=== PATIENT | female | born 1945 | race Caucasian/White ===

== ENCOUNTER 2020-06-11 21:08 | Emergency (ER) | payer MEDICARE ==
[~2020-06-11] VITALS: Ht 165.1 cm; Wt 99.8 kg
[2020-06-11] MEDS ORDERED: METFORMIN HYDRO25 GM (21:51)
[2020-06-11] MEDS ORDERED: HYDROCHLOROTH12.5 M1 (21:52)
[2020-06-11] MEDS ORDERED: PRAVACHOL20 MG (21:52)
== END 2020-06-11 23:39 | disposition home or self-care (01) ==
LOC: ED 21:08
DX: N63.10 Unspecified lump in the right breast, unspecified quadrant (principal); I10 Essential (primary) hypertension; E11.9 Type 2 diabetes mellitus without complications; Z79.84 Long term (current) use of oral hypoglycemic drugs; Z79.899 Other long term (current) drug therapy
CPT/HCPCS: 99282

== ENCOUNTER 2020-09-14 07:00 | Day surgery (SDC) | payer MEDICARE ==
[~2020-09-14] VITALS: Ht 165.1 cm; Wt 83.2 kg
[~2020-09-14 07:00] MED LIST: ASPIRIN EC325 MG PO; CARDIZEM CD300 MG PO; COZAAR25 MG PO; GLUCOPHAGE XR500 MG PO; GLYBURIDE5 MG PO; HYDROCHLOROTHIA25 MG PO; PRAVASTATIN SOD40 MG PO; ZINC30 MG PO
--- NOTE | 2020-09-14 13:20 | NUR ---
09/14/20 1320 Marissa Silverman 1313: PT ARRIVES TO PACU VIA BED FOR RECOVERY. NON REACTIVE ON ARRIVAL WITH OPA IN PLACE. VSS, RESP EVEN AND UNLABORED. O2 SAT STABLE >98% ON 10L VIA FACEMASK. SMALL DROP OF SHADOWING ON CHEST DRESSING. SAMEER DRAINS X2 IN PLACE AND SCDS IN PLACE
--- NOTE | 2020-09-14 15:00 | NUR ---
PT. ARRIVED FROM PACU VIA STRETCHER WITH RNS AND REPORT GIVEN. PT. IS DROWSY BUT EASILY AWAKENS TO VOICE AND ORIENTED. ACTICOAT DRESSING IS CDI AND SAMEER DRAINS CONNECTED TO WALL SUCTION SET TO HIGH AND DRAINING SERISANGUINOUS FLOOD. ABDOMEN DISTENDED BUT SOFT. LUNGS CLEAR THROUGHOUT. CPOX AND SCDS IN PLACE. TRACE EDEMA BLE. IV FLUSHES WELL AND WNL. IVF STARTED. DISCUSSED SAFETY AND MEDICATIONS. PT. LEFT RESTING WITH CALL LIGHT IN REACH.
--- NOTE | 2020-09-14 16:35 | NUR ---
PT. IS ALERT AND ORIENTED. SHE REPORTS PAIN IS TOLERABLE AND REFUSES NEED FOR PAIN MEDICATION. ACTICOAT DRESSING ON RT CHEST IS CDI. SHADOWING PRESENT ON UPPER SAMEER DRESSING. SAMEER DRAINS ATTACHED TO WALL SUCTION ON HIGH. SERISANGUINOUS DRAINAGE. SHE DENIES NAUSEA. DISCUSSED MANAGING PAIN. LEFT RESTING IN BED WITH CALL LIGHT IN REACH.
--- NOTE | 2020-09-14 17:38 | NUR ---
PATIENT REPORTS INCREASING PAIN THAT IS MODERATE IN RIGHT CHEST. ADMIN. PERCOCET. ALERT AND ORIENTED. ACTICOAT DRESSING HAS A SMALL AMOUNT OF SHADOWING. SAMEER DRAINS ATTACHED TO WALL SUCTION AND DRAINING SERISANGUINOUS FLUID. LUNGS CLEAR THROUGHOUT. BOWEL TONES ACTIVE. PT. DENIES NAUSEA AND IS TOLERATING PO FLUIDS. VITALS STABLE.
--- NOTE | 2020-09-14 18:47 | NUR ---
PT. STATES PAIN IS BETTER AND DENIES NAUSEA. VITALS STABLE. TITRATED TO 1L NC AND O2 SATS. REMAIN GREATER THAN 92%. ACTICOAT ON RIGHT CHEST HAS A SMALL AMOUNT OF SHADOWING THAT IS UNCHANGED FROM EARLIER. SAMEER DRAINS PATENT AND ATTACHED TO WALL SUCTION ON HIGH. DRAINAGE NOT REACHING CANISTER EVEN AFTER MANIPULATION.
--- NOTE | 2020-09-14 19:10 | NUR ---
SHIFT REPORT FROM NURSE PACE. PT IS SITTING UP IN BED EATING DINNER. PT STATES THAT SHE HAS FALLEN ASLEEP DURING EATING A COUPLE TIMES. CALL LIGHT WITHIN REACH. PT DENIES NEEDS AT THIS TIME.
--- NOTE | 2020-09-14 20:11 | NUR ---
IN ROOM TO COSIGN INSULIN. PT HAS A VISITOR AT THIS TIME AND AVOIDS NEEDS. CALL LIGHT IS CLOSE.
--- NOTE | 2020-09-14 20:15 | NUR ---
IN ROOM FOR SCHEDULED ONE TIME INSUILIN DOSE. PT HAS A VISITOR AND IS ALERT AND VISTING WITH VISITOR. NO FURTHER NEEDS AT THIS TIME.
--- NOTE | 2020-09-14 21:10 | NUR ---
IN ROOM FOR EVENING MEDS AND ASSESSMENT. PT IS DROWSY AT FIRST BUT IS QUITE ALERT AND TALKATIVE DURING ASSESSMENT AND MEDS. PT REPORTS NO PAIN BUT WHEN ASKED TO TURN A BIT TO THE SIDE TO AUSCULATE LUNGS, PT REPORTS SOME TENDERNESS. SAMEER DRAIN TUBING STRIPPED AND SOME DRAINAGE MOVEMENT IN TUBING ALTHOUGH NOT REACHING WALL UNIT AT THIS TIME. DRAINAGE IS SANGUINOUS IN APPEARANCE, MINIMAL AMOUNT. MAIN BANDAGE IS CDI WITH ONLY SCANT SHADOWING. UPPER SAMEER DRAIN BANDAGE HAS SOME DRAINAGE ON ACTICOAT BUT IS WITHIN OPSITE COVERING. PT REMAINS ON 1L NC SPO2 IS 92-93%. VSS. BOWEL TONES ACTIVE, LUNG SOUNDS CLEAR. CMS INTACT. ZAMUDIO CARE PERFORMED. WATER REFRESHED. PT REPOSITIONED. CALL LIGHT WITHIN REACH.
--- NOTE | 2020-09-14 23:30 | NUR ---
CHECKED ON PT. PT APPEARS TO BE SLEEPING; EYES CLOSED, EVEN UNLABORED BREATHING NOTED. 93% ON 1L NC. NO APPARENT SIGNS OF DISTRESS. CALL LIGHT AND BEDSIDE TABLE WITHIN REC.
--- NOTE | 2020-09-15 02:40 | NUR ---
IN PT ROOM FOR EXTENDED TIME. VITALS COMPLETED. PT REQUESTS TO GET UP TO STRETCH AND GET PRESSURE OFF "REAR END". SBA FWW TO STAND. WHEN PT STOOD, A LARGE AMOUNT OF URINE IS ON THE BED AND PT REPORTS "PEE RUNNING DOWN MY LEGS" DESPITE ZAMUDIO. CONTINUOUS DRIPPING FROM ZAMUDIO. WHEN ASSESSING ORDERS FOR ZAMUDIO, NO ORDER SEEN. THIS RN MADE DECISION TO D/C ZAMUDIO AT THIS TIME. PT THEN HAD MORE URINE IN BSC. FLOOR, PT SOCKS, GOWN CLEANED OF URINE. PT THEN REPORTS PAIN IN SURGICAL AREA. PRN PERCOCET PO ADMINISTERED AT THIS TIME. DRAINAGE FROM JPS APPEARS TO BE TURNING MORE SEROSANGUINOUS FROM SANGUINOUS. PT RETURNED TO BED. CALL LIGHT WITHIN REACH.
--- NOTE | 2020-09-15 05:41 | NUR ---
CALL LIGHT ANSWERED. PT UP TO BSC. VITALS AND ASSESSMENT COMPLETED AT THIS TIME. SCHEDULED MEDS GIVEN. SAMEER DRAIN UPPER 45ML, LOWER 30ML. ATTEMPTING TO TITRATE PT OFF OF O2. WILL CONTINUE TO MONITOR. CALL LIGHT WITHIN REACH.
--- NOTE | 2020-09-15 07:15 | NUR ---
SHIFT REPORT FROM MACARIO METZGER INCLUDED: pt was given PRN pain meds last night and early this morning. pt sometimes forgetful, but alert and oriented x4. pt has both constance drains connected to wall suction on high, due to drains not suctioning from the bulbs. pt currently resting in bed, eyes closed, breathing even and unlabored, table and call light in reach.
--- NOTE | 2020-09-15 08:00 | NUR ---
CBG + MED PASS + ASSESSMENT pt up to commode at this time, with SBA and help with her tubes and lines. pt back to bed, positioned to comfort. pt assessment complete, VSS. pt reports 2/10 pain at this time, denies nausea and SOB. pt currently maintaining o2sats >91% on RA. pt CBG was 297, 4 units insulin given per sliding scale orders. pt able to take all morning meds without difficulty. pts surgical site appears intact and has small amount of shadowing present along dressing. pts constance drain site on her right side has moderate amount of shadowing present, while other constance drain dressing appears CDI. All dressings intact at this time. pt drains connected to high suction from the wall. scant amount of serosanguenous drainage collecting at this time. pt denies further needs at this time, pt sitting up fowlers position, having breakfast, table and call light in reach.
--- NOTE | 2020-09-15 09:55 | NUR ---
PATIENT UP TO BSC AND BACK TO BED, 1PA FWW. PATIENT REFUSED GOING TO CHAIR. URINE IS RED COLORED AND ATTENDS HAD SOME BLOOD STREAKS ON IT, RN NOTIFIED. NEW ATTENDS IN PLACE. CALL LIGHT IN REACH. NO FURTHER NEEDS AT THIS TIME.
--- NOTE | 2020-09-15 09:55 | NUR ---
BENITO INFORMS ME THAT PATIENT HAS BLOODY URINE IN COMMODE AT THIS TIME urine assessed and there was about 200mls of light pink urine in the hat at this time. new hat placed and sample will be collected on her next void. pt denies pain. pt currently in bed, table and call light in reach.
--- NOTE | 2020-09-15 11:02 | OR ---
[facility] [address], [place] [address] Signed DATE OF OPERATION: 09/14/2020 SURGEON: Milan Polanco MD PREOPERATIVE DIAGNOSIS: Ulcerating necrotic large central right breast mass with metastatic disease regionally and to possibly mediastinum. POSTOPERATIVE DIAGNOSIS: Ulcerating necrotic large central right breast mass with metastatic disease regionally and possibly mediastinum. PROCEDURES: 1. Right radical mastectomy (total mastectomy, level #3 axillary dissection, and excision of pectoralis muscle) prolonged complicated difficult. 2. Elevation of superior and inferior advancement flaps for wound closure. ANESTHESIA: General endotracheal; Milan Gardner CRNA. INDICATIONS: This 75-year-old white woman is a patient of Dr. Lg Patrick of [place], [place]. She presented to the emergency room in June with findings of a necrotic foul-smelling rock-hard mass in the central upper right breast and plans were made for evaluation. She has no phone and despite great efforts to call her and arrange for an outpatient visit, she was not seen until September 03. She does not maintain a phone, but ultimately did call in for a visit. She was found to have an ulcerated mass of the right breast with foul smell, consistent with necrosis and clinical lymphadenopathy of the axilla. The lesion appeared to be somewhat fixed to the chest wall. She did not have inflammatory changes of the breast otherwise. CT scan of the chest was performed on September 07, 2020, which was remarkable for a large necrotic right breast mass as well as mediastinal and axillary adenopathy. There was penetration of the tumor to the pectoralis muscle. There was no evidence of pulmonary metastasis. Some question of possible mediastinal adenopathy, axillary adenopathy, and possible sternal metastasis. Breast mass is approximately 66 mm x 38 mm x 74 mm and has some calcifications. It is noted that the patient has had a breast mass in the same breast for a number of years. She tells me 3 biopsies over several years of the mass were all considered "benign." These biopsies were most recently performed approximately 20 years ago and Electronically Signed By: MILAN POLANCO MD 09/15/20 1102 PATIENT NAME: RENA WALTER OPERATIVE REPORT DATE OF : 45 REPORT #: [id number] PHYSICIAN: MILAN POLANCO MD PCP: LG PATRICK MD REPORT IS CONFIDENTIAL AND NOT TO BE RELEASED WITHOUT AUTHORIZATION [facility] [address] [place] [id number] Signed certainly no sooner than 10 or 15 years. Her primary provider is Dr. Lg Patrick in [place]. I have no knowledge of his evaluation of her in the past. Given the necrotic nature of the mass since firm consistency and penetration into the pectoralis, I have recommended radical mastectomy. Excision of the tumor and regional lymph nodes as much as possible is the most likely way to provide reasonable local control. It is noted that the mass itself episodically has profound and profuse bleeding-- which was her presenting complaint at the emergency room months ago. I saw her in the office later this week for treatment planning anticipating possible core biopsy and possibly even a neoadjuvant chemotherapy intitial approach. However, she was found to have somewhat significant exoriation and bleeding which required local pressure for control. It is more reasonable at this point to simply provide definitive surgical local control, given the progression of her problem and consider adjuvant palliative therapy afterward. The patient understands well the risks of bleeding, infection, flap failure, given her underlying diabetes, need for other indicated procedures and little likelihood of total cure, but high likelihood of good local control of disease. She understands and she wished to proceed. FINDINGS: The mass was foul smelling and somewhat necrotic, not hemorrhaging today. It was dense and hard about the size of a baseball and contiguous with pectoralis muscle. Excision included the breast tissue, pectoralis major and dissection of lymph node stations-- Missy's nodes as well as the infraclavicular space and level #3 lymphadenectomy of the axilla. The right axillary vein and artery were well identified as was the thoracodorsal and long thoracic neurovascular bundles, which were preserved. Intercostal brachial nerves were sacrificed with the specimen in continuity. There remained some adenopathy in the infraclavicular space, the central portion on the right side for which additional dissection was deemed a bit too hazardous for fear of disruption of a subclavian vein or artery. Nevertheless, safe resection of the breast and clearance of regional adenopathy is now noted. DESCRIPTION OF PROCEDURE: The patient was brought to the operating room and given a general endotracheal anesthetic. Preoperative antibiotic Ancef was given. Sequential compression device stockings were used and heparin subcutaneously administered. Photographs were taken. The right arm Electronically Signed By: MILAN POLANCO MD 09/15/20 1102 PATIENT NAME: RENA WALTER OPERATIVE REPORT DATE OF : 45 REPORT #: [id number] PHYSICIAN: MILAN POLANCO MD PCP: LG PATRICK MD REPORT IS CONFIDENTIAL AND NOT TO BE RELEASED WITHOUT AUTHORIZATION [address] [address] Signed and upper chest were prepared with a Betadine based solution and draped sterilely. The lesion itself was cephalad to the nipple, was foul-smelling and necrotic. It measured approximately 6 cm of open raw tumor. The central portion of the breast was marked so as to incorporate the tumor and maintain some semblance of flaps to allow for closure. An incision was made with a #15 blade inferiorly initially and carried through the dermis with electrocautery. The breast parenchyma and so forth were dissected free from the flap inferiorly. The tumor clearly penetrated into the pectoralis muscle and pectoralis was excised from the chest wall. There was no penetration to the pectoralis minor. Obvious involved lymph nodes were noted in the Missy's nodes (lymph nodes) between the pectoralis major and minor and these were dissected free in continuity with the specimen. The upper incision line was then incised and similarly dissected up to and through pectoralis, which tumor was penetrating. Care was taken in the infraclavicular space to avoid further dissection into subclavian vein and artery. There were lymph nodes emanating from the axilla laterally to this area, however. These were dissected free with meticulous care as much as possible. Dissection laterally was undertaken ultimately allowing for axillary dissection. The axillary vein was identified and followed centrally toward the clavicle and there were clinically positive lymph nodes inferior to it. The pectoralis was essentially able to be excised with high extended level #3 lymph node stations easily visualized. Multiple very hard lymph nodes were noted in this area. Clips were used to secure small vascular structures. Intercostal brachial nerve bundles were clipped and divided as well. The dissection was completed, ultimately excising axillary lymph tissue in continuity with the breast mass, pectoralis muscle, and the aforementioned extranodal stations. The long thoracic and thoracodorsal neurovascular bundles were well identified and preserved. Irrigation was undertaken with sterile water for its tumorlytic effect. Two stab wounds were made inferiorly to place 10 mm drains. Tisseel (fibrin glue) was applied to the axilla and raw edge of the pectoralis muscle. Attention was then turned towards closure. The skin flaps were short enough that direct apposition was not initially possible at all except for the lateral and medial aspects. On that basis, flaps were elevated superiorly and inferiorly to allow for transposition to close the mastectomy defect. Underming of the superior flap was to the level of the clavicle and for the inferior flap to beyond the costal margin to the rectus sheath. The superior and inferior flaps were drawn together with traumatic towel clamps and secured sequentiall with interrupted 2-0 Vicryl. The central part had an area about the size of 4 to 6 cm, which was under a fair amount of tension. The right arm was then placed at the side to take additional tension off. Using the benefit of the towel clamps, the flap edges were able to be directed Electronically Signed By: MILAN POLANCO MD 09/15/20 1102 PATIENT NAME: RENA WALTER OPERATIVE REPORT DATE OF : 45 REPORT #: [id number] PHYSICIAN: MILAN POLANCO MD PCP: LG PATRICK MD REPORT IS CONFIDENTIAL AND NOT TO BE RELEASED WITHOUT AUTHORIZATION [address] [address] Signed together and the remaining space closed. The skin was then fully oversewn with a running 2-0 nylon suture. Irrigation was undertaken prior to closure. There was no ongoing bleeding. The drains were attached to bulb suction. She did not initially hold air too well and additional opSites were applied to the drain sites as well as the mastectomy site itself. This allowed for better occlusion and suctioning on the drains. It is likely she will need some additional suction from wall suction device in the 1st 12 to 24 hours. The patient was ultimately extubated and transferred to recovery room in good condition having suffered no complication. Sponge and needle counts were reported as correct x3. Blood loss was estimated at less than 100 mL in aggregate. The procedure was prolonged, complicated, and difficult based on the aforementioned factors, particularly in mobilizing the skin to allow for closure and extended and advanced lymphadenectomy. Milan Polanco MD /MODL /[id number] cc: Dr. [facility] MD Lg Torres MD Copies: LO NEGRON MD, KEVIN R MD ~ Electronically Signed By: MILAN POLANCO MD 09/15/20 1102 PATIENT NAME: RENA WALTER OPERATIVE REPORT DATE OF : 45 REPORT #: [id number] PHYSICIAN: MILAN POLANCO MD PCP: LG PATRICK MD REPORT IS CONFIDENTIAL AND NOT TO BE RELEASED WITHOUT AUTHORIZATION
--- NOTE | 2020-09-15 14:23 | NUR ---
PATIENT UP TO BATHROOM AND BACK TO CHAIR, 1PA. VITALS AND I&O'S CHARTED. FRESH WATER GIVEN. CALL LIGHT IN REACH. NO FURTHER NEEDS AT THIS TIME.
--- NOTE | 2020-09-15 17:47 | NUR ---
PATIENT UP TO BATHROOM AND BACK TO CHAIR, SBA. VITALS AND I&O'S CHARTED. CALL LIGHT IN REACH. NO FURTHER NEEDS AT THIS TIME.
--- NOTE | 2020-09-15 19:44 | NUR ---
PATIENT UP TO THE BATHROOM INDEPENDENTLY AND HAD NO CURRENT CARE NEEDS. CALL LIGHT ON THE BED.
--- NOTE | 2020-09-15 22:40 | NUR ---
PATIENT SITTING UP IN THE BEDSIDE ARM CHAIR RECLINING. PATIENT HAVING 3/10 RIGHT CHEST SURGICAL SITE PAIN AND WAS GIVEN PO TYLENOL. PATIENT HAS BEEN UP TO THE BATHROOM INDEPENDENTLY AND HAS BEEN WALKING OUT IN THE HAILE WELL INDEPENDENTLY. PATIENT BELIEVED AT THIS TIME THAT SHE WAS STILL IN 'S OFFICE AND HAD TO REORIENT HER THAT SHE WAS STILL IN THE HOSPITAL. PATIENT SAID,"WELL I'VE BEEN A LITTLE OUT OF IT FOR A COUPLE DAYS." PATIENT PLEASANT AND COOPERATIVE. DRESSINGS REMAIN UNCHANGED FROM DISCRIPTION IN ASSESSMENT. VS HAVE BEEN STABLE. PATIENT GIVEN SOME SUGAR FREE PUDDING A SNACK. PATIENT HAD NO OTHR NEEDS AT THIS TIME. CALL LIGHT IN REACH.
--- NOTE | 2020-09-16 00:59 | NUR ---
PATIENT RESTING QUIETLY IN THE BEDSIDE ARMCHAIR, EYES CLOSED, RESPIRATIONS REGULAR AND EVEN, CALL LIGHT IS IN REACH.
--- NOTE | 2020-09-16 03:00 | NUR ---
PATIENT RESTING QUIETLY IN THE BEDSIDE ARMCHAIR, EYES CLOSED, RESPIRATIONS REGULAR AND EVEN, CALL LIGHT IS IN REACH.
--- NOTE | 2020-09-16 04:48 | NUR ---
IN TO GET VITALS, RN IN RM FOR JPs, I@Os DONE, NO FURTHER NEEDS AT THIS TIME
--- NOTE | 2020-09-16 05:41 | NUR ---
PATIENT HAS SLEPT IN THE BEDSIDE ARMCHAIR MOST OF THE NIGHT. PATIENT INDEPENDENT IN THE ROOM AND VOIDING WELL ALL THOUGH FREQUENTLY WITH SOME INCONTINENCE AT TIMES. BOTH SAMEER DRAINS MAINTAINING SUCTIONING AND HAVE HAD NO MORE THAN 20MLS SEROSANGUINOUS DRAINAGE WHEN EMPTIED EACH TIME. PATIENT'S PAIN HAS BEEN WELL CONTROLLED WITH SCHEDULED TYLENOL. PAIN HAS BEEN NO MORE THAN 3/10 AND PATIENT HAS WANTED NO OTHER PAIN MEDS THAN THE TYLENOL. PATIENT RESTING QUIETLY IN THE BEDSIDE ARMCHAIR AT THIS TIME AND CALL LIGHT IS IN REACH.
--- NOTE | 2020-09-16 07:30 | NUR ---
PT RESTING IN THE CHAIR AT SHIFT EXCHANGE. APPEARS COMFORTABLE SNORING SOFTLY. CALL LIGHT IN REACH. LEFT UNDISTURBED
--- NOTE | 2020-09-16 08:37 | NUR ---
PT AWAKE IN CHAIR. PT UP TO BATHROOM WITH NO ASSISTANCE. PT REFUSED WARM CLOTH. FRESH WATER GIVEN. CALL LIGHT WITHIN REACH. PT PLANS TO MAKE PHONE CALLS AFTER BREAKFAST. NO FURTHER NEEDS AT THIS TIME.
--- NOTE | 2020-09-16 08:56 | NUR ---
PT UP IN THE CHAIR WITH MORNING MEAL, SHE ASKS ABOUT TYLENOL. REVIEWED SCHEDULED WITH HER AND OFFERED IBUPROFEN OR OTHER IN THE MEANTIME. PT STATES IT'S NOT THAT BAD SHE WILL WAIT FOR TYLENOL. PT NOT USING RT ARM AT ALL, REQUESTS MILK AND OTHER ITEMS BE MOVED INCHES CLOSER FOR EASIER REACH. PT ACCOMODATED
--- NOTE | 2020-09-16 10:45 | NUR ---
DR POLANCO IN TO SEE PT DISCUSSES CONTACT WITH HIS OFFICE AND USE OF HER RIGHT ARM. RECCOMENDS ELEVATING AND USING LIGHTLY. PT VERBALIZES UNDERSTANDING. ALL QUESTIONS ANSWERED.
[2020-09-16] MEDS ORDERED: OXYCODON-ACETA1 EAC2 PO (10:55)
[2020-09-16] MEDS ORDERED: ACETAMINOPHEN500 MG PO (10:55)
--- NOTE | 2020-09-16 12:32 | NUR ---
DC INSTRUCTIONS REVIEWED WITH PT. MOST MATERIAL WAS WHAT DR POLANCO ALREADY TOLD HER. REVIEWED AT LENGTH, COLORED ITEMS YELLOW ON HER COPY OF DC INSTRUCTIONS, FOR BETTER VISUAL. PT VERBALIZES UNDERSTANDING. .
--- NOTE | 2020-09-16 13:42 | NUR ---
ASSISTED PT TO PUT XL WALTER HOSE ON RIGHT AFFECTED ARM. DR POLANCO AUTHORIZED WE COULD NOT GET AN ARM SLEEVE UNTIL HER OUTPT OT APPT. PT TOLERATED WELL.
--- NOTE | 2020-09-16 13:56 | NUR ---
PT WAITING FOR HER RIDE HOME. EATS 100% OF LUNCH USING RIGHT ARM FOR PERSONAL TASKS DR POLANCO INSTRUCTED. TYLENOL ADMINISTERED. PT VERBALIZES DC INSTRUCTIONS WHEN QUESTIONED ABOUT VARIOUS THINGS.
--- NOTE | 2020-09-26 11:23 | PATH ---
[facility] [address] [place], [place] [address] Signed THIS IS AN ADDENDUM REPORT SPECIMEN(S): A RIGHT BREAST SPECIMEN SOURCE: A. RIGHT BREAST CLINICAL HISTORY: Right radical mastectomy. Malignant neoplasm RUQ right breast penetrating to pectoral muscle (short stitch clavicular lymph node, long stitch tate enter pectoral). See HP. 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 - Tumor size: 98 mm (main tumor mass), 3 mm (smaller focus). - Histologic grade (Carmine histologic score): - Glandular/tubular differentiation score: 3/3. - Nuclear pleomorphism score: 3/3. - Mitotic score: 2/3. - Overall grade: III/III (Total score: 8/9, high-grade). - Tumor focality: Multiple foci of invasive carcinoma. - Associated in situ component: Not identified. No DCIS is present. - Tumor extension: - Skin: Invasive carcinoma directly invades into the dermis and epidermis with skin ulceration. - Nipple: There is no ductal carcinoma in situ involvement of the nipple epidermis. - Skeletal muscle: Carcinoma invades the underlying skeletal muscle, but does not appear to extend beyond. - Margins: - Deep margin (away from the pectoralis muscle): Positive. - Superior margin: Positive. - Inferior margin: Uninvolved. - Treatment effect: No known presurgical therapy. - Lymphovascular invasion: Present. - Microcalcifications: Present in the invasive and benign components. - Additional pathologic findings: None. - Estrogen receptor: Positive. PATIENT NAME: RENA WALTER PATHOLOGY DATE OF : 45 REPORT #: [id number] PHYSICIAN: WILLIAM PATHOLOGY PCP: LG COSTELLO MD REPORT IS CONFIDENTIAL AND NOT TO BE RELEASED WITHOUT AUTHORIZATION [facility] [address] [place], [place] [address] Signed - 100% of tumor cells with strong average intensity. - Progesterone receptor: Negative. - 0% of tumor cells with staining. - Ki-67 proliferation index: 30%. - HER2 by IHC: Pending, to be reported by addendum. - Pathologic staging classification: pT4b, pN3c. - Summary of lymph nodes: - Total number of lymph nodes examined: 22. - Number of sentinel lymph nodes examined: 0. - Total number of lymph nodes positive for carcinoma: 12. - Number of lymph nodes with macrometastasis (>2 mm): 11. - Number of lymph nodes with micrometastasis: 1. - Number of lymph nodes with isolated tumor cells: 0. - Size of largest metastatic deposit: 18 mm. - Extranodal extension: Present. COMMENT: A second focus of tubular carcinoma is identified (slide A3). Smooth muscle myosin heavy chain and P63 immunohistochemical stains are negative in this area, confirming the presence of invasive carcinoma with tubular morphology. Control slides stained appropriately positive. This focus is 5.5 mm from the posterior margin. The separate mass (see Gross Description) may represent a satellite nodule within the adipose tissue or a metastatic focus. This mass is separate from the main tumor lesion. The separate mass is considered a satellite nodule and measures 46 mm. An additional satellite nodule (slide A22) is also identified and this measures 19 mm. As part of [email or web address]' Quality Improvement Program, this case was reviewed by Dr. Shaneka Cevallos, another member of our pathology staff. VIRI:HEIDI:sal:angi:C1NR MICROSCOPIC EXAMINATION: Histologic sections of all submitted blocks are examined by light microscopy. These findings, together with the gross examination, support the pathologic diagnosis. Block: A2 The cold ischemia time is unknown. The fixative is 10% neutral buffered formalin. The length of fixation is at least 14 hours and less than 24 hours, meeting ASCO/CAP guidelines. PATIENT NAME: RENA WALTER PATHOLOGY DATE OF : 45 REPORT #: [id number] PHYSICIAN: [employer] [facility] PCP: LG COSTELLO MD REPORT IS CONFIDENTIAL AND NOT TO BE RELEASED WITHOUT AUTHORIZATION [address] [address] Signed Estrogen receptor clone SP1 and progesterone receptor clone [id number] by [employer] [place], [place]. Detection: HRP Polymer Detection on the [employer] with appropriate controls. Nuclear immunoreactivity of 1% or greater is considered positive by ASCO/CAP guidelines. Internal control cells for ER are positive. Internal control cells for RI are positive. A Ki-67 proliferation index is performed, and 500 cells are counted. VIRI:angi GROSS DESCRIPTION: The specimen, labeled "MJ," and designated on the requisition "right breast, short stitch clavicular lymph node, long stitch tate enter pectoral," is received in formalin and consists of a right radical mastectomy (589 gram, 13.6 cm medial to lateral, 14.2 cm superior inferior, 6.7 cm anterior to posterior) with attached axillary tail (12.5 x 9.3 x 3.0 cm) and attached portion of muscle (10.9 x 10.8 x 3.5 cm). The attached portion of skin (15.4 x 12.8 cm) has an inverted nipple (1.2 x 0.8 cm) and a pink-cason to hemorrhagic area of ulceration (7.0 x 6.7 cm) that exposes a pink-cason, firm nodular mass. Gross photographs are taken and uploaded into [employer]. The specimen is inked as follows: Blue = Superior Green = Inferior Black = Deep The specimen is serially sectioned from lateral to medial into 19 slices to reveal a pink-cason, firm mass (9.8 x 7.3 x 4.6 cm) in slices 8-18 that grossly involves the skin, nipple, and pectoralis muscle and abuts the deep margin. The mass is located 0.7 cm in the superior margin, and 0.7 cm in the inferior margin. There is also a separate mass/lymph node (marked with long suture) in slices 14-18 within the muscle that measures 4.6 x 3.7 x 1.5 cm, abuts the superior and deep margins and is located 2.8 cm from the 9.8 cm mass. The remaining cut surface shows yellow-cason, fatty to white-cason, fibrous (50% fibrous) tissue. The specimen map is prepared and uploaded into [employer]. The axillary tail is palpated and 24 possible lymph nodes are identified ranging in size from 0.3-4.5 cm in greatest dimension (one marked as clavicular lymph node, seven possible lymph nodes within the superior medial aspect adjacent to the clavicular lymph node, eight possible lymph nodes within the inferior medial aspect, five possible lymph PATIENT NAME: RENA WALTER PATHOLOGY DATE OF : 45 REPORT #: [id number] PHYSICIAN: WILLIAM PATHOLOGY PCP: LG COSTELLO MD REPORT IS CONFIDENTIAL AND NOT TO BE RELEASED WITHOUT AUTHORIZATION [facility] [address] [place], [place] [address] Signed nodes within the inferior lateral aspect, and three possible lymph nodes within the superior lateral aspect of the tail). Stretcher Leveler Operator Helper sections are submitted as follows: Cassette Summary: (A1) Mass to nipple, slice 8 (A2) Mass to nipple, slice 9 (A3) Mass to deep margin, slice 10 (A4) Mass to skin, slice 12 (A5) Mass to pectoralis muscle, slice 13 (A6) Mass to muscle, slice 15 (A7) Tissue between masses/lymph node, slice 15 (A8) Tissue between masses/lymph node, slice 17 (A9) Mass to closest superior margin, slice 17 (A10) Additional mass to uninvolved (slice 9, slice 16) (A11-A12) Separate mass/lymph node to deep and superior margins (A13) Upper outer quadrant (slice 5, slice 7) (A14) Lower outer quadrant (slice 4, slice 6) (A15) Upper inner quadrant (slice 12, slice 14) (A16) Lower inner quadrant (slice 13, slice 17) Possible Lymph nodes, superior medial of tail adjacent to clavicular lymph node submitted as follows: (A17) Clavicular lymph node, trisected (A18) One possible lymph node directly adjacent to clavicular lymph node, veterans contact representative sections (A19) One possible lymph node, veterans contact representative sections (A20) Three possible lymph nodes, one inked blue, one inked black, one inked uninked, all bisected (A21) One possible lymph node, serially sectioned Possible lymph nodes, inferior medial aspect of tail submitted as follows: (A22) One possible lymph node, veterans contact representative section (A23) Three possible lymph nodes, one inked black, one inked blue, one uninked, all bisected (A24) One possible lymph node, veterans contact representative sections (A25) One possible lymph node, veterans contact representative sections (A26) Two possible lymph nodes, one inked black, one inked blue and bisected Possible lymph nodes, inferior lateral aspect of tail submitted as follows: (A27) Three possible lymph nodes, intact (A28) Two possible lymph nodes, one uninked, one inked blue, both bisected PATIENT NAME: RENA WALTER PATHOLOGY DATE OF : 45 REPORT #: [id number] PHYSICIAN: WILLIAM ELLIOTT PCP: LG COSTELLO MD REPORT IS CONFIDENTIAL AND NOT TO BE RELEASED WITHOUT AUTHORIZATION [facility] [address] [place], [place] [address] Signed Possible lymph nodes, superior lateral aspect of tail submitted as follows: (A29) One possible lymph node, bisected (A30) Two possible lymph nodes, one inked blue, both bisected Cold ischemic time: Cannot be calculated due to insufficient information. The specimen was fixed in formalin for at least 14 hours and less than 24 hours. AC (under the direct supervision of a pathologist) The Gross Description was prepared using a voice recognition system. The report was reviewed for accuracy; however, sound-alike word errors, addition and/or deletions may occur. If there is any question about this report, please contact Client Services. ADDITIONAL NOTES: Immunohistochemical and/or in situ hybridization studies were performed on this case with the appropriate positive controls that react as expected. This test was developed and its performance characteristics determined by [email or web address]. It has not been cleared or approved by the U.S. Food and Drug Administration. The FDA has determined that such clearance or approval is not necessary. This test is used for clinical purposes. It should not be regarded as investigational or for research. [email or web address] is certified under the Clinical Laboratory Improvement Amendments of 1988 (CLIA) as qualified to perform high complexity clinical laboratory testing. This assay has not been validated for specimens that have been decalcified. PERFORMING LABORATORY: The technical component was performed by [email or web address], [address] [place] [address] (Staffing And Scheduling Coordinator: Silvia Jeff MD; CLIA# [id number]). Professional interpretation was performed by [email or web address], Formerly [facility], [address] [place] [address] (CLIA# [id number]). The technical and professional components were performed by [email or web address], [address] [place] [address] (Staffing And Scheduling Coordinator: Marcellus Ramirez D.O.; CLIA#: [id number]). REASON FOR ADDENDUM: To add results of additional testing. ADDENDUM PATHOLOGIC DIAGNOSIS: HER-2 protein by IHC, right breast: - Equivocal; IHC score 2+. ADDENDUM COMMENT: PATIENT NAME: RENA WALTER PATHOLOGY DATE OF : 45 REPORT #: [id number] PHYSICIAN: WILLIAM PATHOLOGY PCP: LG COSTELLO MD REPORT IS CONFIDENTIAL AND NOT TO BE RELEASED WITHOUT AUTHORIZATION [facility] [address] [place], [place] [address] Signed In view of the equivocal IHC result, reflex testing for HER-2 amplification by FISH has been ordered and will be reported by addendum. TTP:[facility] ADDENDUM MICROSCOPIC EXAMINATION: Block: A2. The fixation is 10% buffered formalin. The length of fixation is at least 14 hours and less than 24 hours, meeting ASCO/CAP guidelines. HER-2 protein expression by immunohistochemistry using the FDA-approved HER-2 Pathway [email or web address] at the request of Dr. Eduardo Layne. Standardized batch control materials react appropriately. The presence of tumor is confirmed. Scoring is according to ASCO/CAP 2018 guidelines. Weak to moderate complete membrane staining observed in greater than 10% of tumor cells; score 2+. PERFORMING LABORATORY: The technical and professional components were performed by [email or web address], [address] [place] [address] (Staffing And Scheduling Coordinator: Marcellus Ramirez D.O.; CLIA#: [id number]). REASON FOR ADDENDUM: To add results of additional testing. ADDENDUM PATHOLOGIC DIAGNOSIS: HER-2 gene by FISH, right breast: - Positive for amplification. TTP:[facility] ADDENDUM MICROSCOPIC EXAMINATION: Specimen type: Mastectomy. Block: A2. Cold ischemia time: Unknown. The fixation is 10% buffered formalin. The length of fixation is at least 14 hours and less than 24 hours, meeting ASCO/CAP guidelines. Scoring method: Manual. Fluorescence in situ hybridization (FISH) study (multiplex probe) for HER-2 gene amplification using the [employer] HER2 IQFISH pharmDx kit was performed at [email or web address], [place], [place]. The assay has not been validated for decalcified specimens. Controls were processed in the same batch as the patient and reacted appropriately. The patient's sample was considered adequate for interpretation. - Number of nuclei counted: 40 PATIENT NAME: RENA WALTER PATHOLOGY DATE OF : 45 REPORT #: [id number] PHYSICIAN: WILLIAM PATHOLOGY PCP: LG COSTELLO MD REPORT IS CONFIDENTIAL AND NOT TO BE RELEASED WITHOUT AUTHORIZATION [facility] [address] [place], [place] [address] Signed - Number of HER-2 signals counted: 200 - Number of CEP 17 signals counted: 101 - Average number of HER-2 signals per cell: 5 - Average number of CEP 17 signals per cell: 2.5 - HER-2:CEP 17 ratio: 2.0 Positive for HER-2 amplification (ratio greater than or equal to 2.0 and average HER-2 signals per cell greater than or equal to 4.0). Diagnostician: Eduardo Layne MD Pathologist Diagnostician: Natasha Katz MD Pathologist Electronically Signed 09/26/2020 Copies: ~ PATIENT NAME: RENA WALTER PATHOLOGY DATE OF : 45 REPORT #: [id number] PHYSICIAN: WILLIAM PATHOLOGY PCP: LG COSTELLO MD REPORT IS CONFIDENTIAL AND NOT TO BE RELEASED WITHOUT AUTHORIZATION
--- NOTE | 2020-10-02 08:57 | DS ---
[facility] [address] [place], [place] [address] Signed ADMISSION DATE: 09/14/2020 DISCHARGE DATE: 09/16/2020 REASON FOR ADMISSION: A 75-year-old white woman with locally advanced fungating, ulcerated, necrotic, bleeding, penetrating (to pectoralis) breast tumor, here for right radical mastectomy. HISTORY: This patient has seen Dr. Lg Patrick at [facility] for a number of years. She has had a central hard breast mass for a number of years and has undergone three biopsies elsewhere, all of them said to be benign. The patient has been fearful of the COVID pandemic and has not seen her primary physician Dr. Patrick since the pandemic began apparently. Dr. Patirck was rightly concerned of the mass according to the patient and had recommended mammography, but the patient had declined as the mass was painful. The patient has been secluding herself during the course of the pandemic and has not seen Dr. Patrick since pandemic began in May a year ago. The patient presented to the emergency room, was evaluated by Dr. Terri Bowden on June 11, 2020, with an ulcerated central breast mass that was persistently bleeding. Spontaneous cessation was noted, and the patient was advised to call my office for followup visit promptly. The patient did not call at all and my office's attempts to contact her were unsuccessful as the patient maintains no phone. It was ultimately discovered she did have an email address, which she responded to ultimately and was seen in my office on September 03. She was noted to have a large necrotic central breast mass, which was very hard and with ulceration and easy bleeding. The lesion was somewhat fixed to the right chest wall, and on that basis a CT scan was performed, which evaluated both breasts and which confirmed a central breast mass on the right side penetrating into the pectoralis muscle. Additionally, mediastinal adenopathy is suspected as axillary adenopathy and possible bony lesion of the sternum. Consideration is made for repeat biopsy, possible neoadjuvant chemotherapy, and subsequent resection; however, in my office recently the week of operation, her bleeding was quite significant and barely able to be controlled, and on that basis I have recommended to proceed directly to right radical mastectomy at this point. The patient understands the risks of this operation, including but not limited to, bleeding, infection, edema, and other unforeseen complications. It is quite certain that she will require palliative chemotherapy and it is quite unlikely this problem would be curable based on the evidence we have thus far. Notably, however, she does not have any parenchymal metastasis to the lungs. On the basis of her advanced breast tumor of whatever etiology including progressive recurrent bleeding and ulceration and Electronically Signed By: MILAN POLANCO MD 10/02/20 0857 PATIENT NAME: RENA WALTER DISCHARGE SUMMARY DATE OF : 45 REPORT #: [id number] PHYSICIAN: MILAN POLANCO MD PCP: LG PATRICK MD REPORT IS CONFIDENTIAL AND NOT TO BE RELEASED WITHOUT AUTHORIZATION [facility] [address] [place], [place] [address] Signed necrotic smell, she is admitted to undergo surgery as described. PERTINENT PHYSICAL EXAM: An obese white woman, BMI 30.5, who has difficulty hearing. Trachea is midline. Chest shows normal respiratory excursion and is clear. Chest exam shows a rock-hard central breast mass with ulceration approximately 5 cm in diameter, the superior aspect with upward displacement of the right nipple. There is obvious axillary adenopathy on the right side and possibly infraclavicular adenopathy on clinical exam. Breast is fixed to the chest wall as previously described. The left breast is normal except for extensive seborrheic keratoses. There is no sign of axillary adenopathy on the left. She does not have significant arm edema on the right side at this time (surprisingly). LABORATORY DATA: Pertinent labs preoperatively, SARS-CoV-2 preop test is negative. Glucose is 225. Liver enzymes are normal. White count 7.8, hematocrit 38.3, and platelets are 354,000. Electrolytes normal. HOSPITAL COURSE: The patient underwent right radical mastectomy (total mastectomy with excision of right pectoralis major) as well as extensive lymphadenectomy of the grossly positive right axilla, Missy's interpectoral lymph nodes, and right infraclavicular lymph nodes. Two drains were placed in usual configuration. The patient was directly admitted following operation for further management. In the first 24 hours, the bulb suction required assistance from wall suction to maintain suction, but thereafter good suction was noted. Her flaps appeared viable on inspection. By the second postoperative day, she was starting to develop some lymphedema. Physical Therapy will be consulted. Exercises were reviewed as well as arm elevation recommendations. The pathology report is still pending at time of discharge. FOLLOWUP PLAN: She is return to see me in about two weeks. In the meantime, she will be set up with outpatient physical therapy to get ahead of right arm edema, for which she is at high risk. If possible, a compression sleeve will be configured for her today, though this is Thursday of weekend and availability of the device may be delayed on that basis. She will maintain pain medication primarily of Tylenol 1 g p.o. q.6 hours as needed, will have Percocet 7.5/325 one to two p.o. q.6 hours available as needed. DISCHARGE MEDICATIONS: 1. Percocet 7.5/325 one to two p.o. q.6 hours as needed for pain, #10. 2. Tylenol 500 mg two tablets p.o. q.6 hours, #90, refill one. Note the patient is self described as intolerant of Motrin and refused to take it. Electronically Signed By: MILAN POLANCO MD 10/02/20 0857 PATIENT NAME: RENA WALTER DISCHARGE SUMMARY DATE OF : 45 REPORT #: [id number] PHYSICIAN: MILAN POLANCO MD PCP: LG PATRICK MD REPORT IS CONFIDENTIAL AND NOT TO BE RELEASED WITHOUT AUTHORIZATION [facility] [address] [place], [place] [address] Signed 3. She will continue with her other medications, which include Glucophage XR 500 mg four tablets p.o. daily. 4. Hydrochlorothiazide 25 mg p.o. daily. 5. Pravastatin 40 mg p.o. daily. 6. Glyburide 5 mg two tablets p.o. daily. 7. Diltiazem hydrochloride (Cardizem CD 300 mg p.o. q.24 hours). 8. Losartan 25 mg p.o. daily. 9. Zinc gluconate 30 mg p.o. daily. 10. Aspirin 325 mg p.o. daily. FOLLOWUP PLANS: The patient will call my office on Thursday to set up appointment in two weeks as previously noted. The patient understands that without her own phone communication can be impaired. She is free to call our office at any time if the need should arise. She is possibly more easily communicated with by e-mail, which she does tend to use. She is aware of that also. DISCHARGE DIAGNOSES: 1. Locally advanced right breast cancer with possible distant metastatic disease to mediastinum, status post right radical mastectomy. 2. Obesity. 3. Hypertension. 4. Diabetes mellitus. Milan Polanco MD /MODL /[id number] cc: MD Roel Sun, MD Terri Bowden, MD Ventura Pearson MD, PH.D. Electronically Signed By: MILAN POLANCO MD 10/02/20 0857 PATIENT NAME: RENA WALTER DISCHARGE SUMMARY DATE OF : 45 REPORT #: [id number] PHYSICIAN: MILAN POLANCO MD PCP: LG PATRICK MD REPORT IS CONFIDENTIAL AND NOT TO BE RELEASED WITHOUT AUTHORIZATION [facility] [address] [place], [place] [address] Signed Copies: LG PATRICK MD, ROBERT C MD PRIDGEN, KELLY DEAN MD CHOE, JUNO ~ Electronically Signed By: MILAN POLANCO MD 10/02/20 0857 PATIENT NAME: JOSE ANGELRENACOLLETTE KRUEGERS DISCHARGE SUMMARY DATE OF : 45 REPORT #: [id number] PHYSICIAN: MILAN POLANCO MD PCP: LG PATRICK MD REPORT IS CONFIDENTIAL AND NOT TO BE RELEASED WITHOUT AUTHORIZATION
[2020-11-05] MEDS ORDERED: CRANBERRY200 MG (16:42)
== END 2020-09-16 14:15 | disposition home or self-care (01) ==
LOC: DS 07:00 → MS 14:50 → DS 09-16 14:15
PROVIDERS: ATTEND Surgery
PROC: 0HTT0ZZ Resection of Right Breast, Open Approach (ICD-10-PCS; principal; 2020-09-14 08:45)
DX: C50.411 Malignant neoplasm of upper-outer quadrant of right female breast (principal); C77.3 Secondary and unspecified malignant neoplasm of axilla and upper limb lymph nodes; E66.9 Obesity, unspecified; I10 Essential (primary) hypertension; E11.9 Type 2 diabetes mellitus without complications; Z68.30 Body mass index [BMI] 30.0-30.9, adult; Z17.0 Estrogen receptor positive status [ER+]
CPT/HCPCS: 00404; 36415; 81001; 85025; 88307; 88341; 88342; 88360; 88377; 97161; J0690; J1100; J1644; J1815; J1885; J2250; J2270; J2405; J2704; J2765; J3010; J7121

== ENCOUNTER 2020-11-06 06:25 | Day surgery (SDC) | payer MEDICARE ==
[~2020-11-06] VITALS: Ht 165.1 cm; Wt 88.5 kg
[~2020-11-06 06:25] MED LIST changes: +ACETAMINOPHEN500 MG PO; +CRANBERRY200 MG; +OXYCODON-ACETA1 EAC2 PO
--- NOTE | 2020-11-06 08:29 | NUR ---
11/06/20 0829 Sheets,[place] 0821 PT ARRIVED TO PACU ON 10L VIA MASK, PT MAINTAINING OWN AIRWAY, RESP EVEN AND UNLABORED. VSS. PT NONAROUSABLE TO TACTILE STIMULI. 0828 O2 DECREASED TO 6L AND XRAY CALLED.
[2020-11-06] MEDS ORDERED: OXYCODON-ACETA1 EAC2 PO (08:48)
[2020-11-06] MEDS ORDERED: DIFLUCAN150 MG PO (08:49)
--- NOTE | 2020-11-06 09:48 | NUR ---
09: PT RETURNS TO UNIT ROOM 4 VIA STRETCHER. AWAKE AND ALERT. VSS, RESP EVEN AND UNLABORED. VIRGILIO PO INTAKE WELL. DENIES NAUSEA AND REPORTS VIRGILIO AMOUNT OF POST OP PAIN AT THIS TIME. CMS WNL. DRESSING C/D/I. SNACK AND ICE WATER PROVIDED. PT DENIES NEED FOR PAIN RX AT THIS TIME. CALL LIGHT WITHIN REACH 0935: TC PLACED TO MARLO (FRIEND) AND UPDATE PROVIDED AT PT REQUEST
--- NOTE | 2020-11-06 10:39 | NUR ---
1010: PT WAKES WHEN THIS RN ENTERS THE ROOM. VSS, RESP EVEN AND UNLABORED. NO CHANGE TO DRESSING, CMS WNL. IV CONVERTED TO SL. PT REPORTS URGE TO VOID. DANGLES AT THE BEDSIDE. VIRGILIO WELL WITH MINIMAL DIZZINES. AMBULATES TO BR WITH STANDBY ASSIST FROM THIS RN. SUCCESSFUL FIRST POST OP VOID. BACK TO STRETCHER. COMFORTABLE WITHOUT NEEDS. CONTS TO DENY NEED FOR PAIN RX. LIGHTS DIMMED FOR PT REST
--- NOTE | 2020-11-06 11:53 | NUR ---
1130: PT WAKES WHEN THIS RN ENTERS THE ROOM. VSS, RESP EVEN AND UNLABORED. CONVERSES WITH THIS RN. DENIES PAIN AND NAUSEA, NO CHANGE TO DRESSING. CMS WNL. SL REMOVED WITH CATH TIP INTACT AND PRESSURE APPLIED TO SITE. D/C INSTRUCTIONS PROVIDED AND DISCUSSED ORDERED. PT VOICES UNDERSTANDING AND DENIES QUESTIONS OR CONCERNS. DENIES NEED FOR HELP DRESSING. TO CALL FOR RN WHEN READY FOR D/C
--- NOTE | 2020-11-06 12:06 | NUR ---
1200: PT DRESSED AND READY FOR D/C. WHEELED OFF OF UNIT BY THIS RN. TRANSFERS INTO VEHICLE INDEPENDENTLY. RESP EVEN AND UNLABORED. NO PHYSICAL S/S OF DISTRESS AT THIS TIME
--- NOTE | 2020-11-16 10:35 | OR ---
[facility] [address], [place] [address] Signed DATE OF OPERATION: 11/06/2020 SURGEON: Milan Polanco MD PREOPERATIVE DIAGNOSIS: Stage IV right breast cancer, status post radical mastectomy. POSTOPERATIVE DIAGNOSIS: Stage IV right breast cancer, status post radical mastectomy. PROCEDURES: 1. Left subclavian Port-A-Cath placement (Bard port catheter). 2. Surgeon-directed fluoroscopy. ANESTHESIA: General LMA; Milan Gardner CRNA and local 7 mL of 0.25% Marcaine with epinephrine. INDICATION: This 75-year-old white woman is a patient of Bass[facility] [place] and underwent right radical mastectomy (by wy) several weeks ago for advanced right breast cancer penetrating to the pectoralis fascia. She is anticipating chemotherapy under the direction of Dr. Cline. Central venous access is recommended on that basis with a port device. She is admitted at this time to undergo Bard port catheter placement. Understands the risks of bleeding, infection, pneumothorax, and other unforeseen complications. FINDINGS: Dark nonpulsatile blood was noted from the left subclavian vein. The catheter was placed without problem and good function is noted at conclusion of the procedure. DESCRIPTION OF PROCEDURE: The patient was brought to the operating room, placed in mild Trendelenburg position with arms at the side. The head turned to the right. The upper torso was prepared with a chlorhexidine solution and draped sterilely. Access to the left subclavian vein was easily undertaken with Seldinger technique showing dark nonpulsatile blood. A flexible J-wire was passed down the needle and the needle was removed. Fluoroscopy confirmed the wire to be in the right heart system. 7 mL of 0.25% Marcaine with epinephrine was injected transversely over the left pectoralis. A transverse incision was made and dissection was carried through the Electronically Signed By: MILAN POLANCO MD 11/16/20 1035 PATIENT NAME: RENA WALTER OPERATIVE REPORT DATE OF : 45 REPORT #: [id number] PHYSICIAN: MILAN POLANCO MD PCP: LG COSTELLO MD REPORT IS CONFIDENTIAL AND NOT TO BE RELEASED WITHOUT AUTHORIZATION [facility] [address], [place] [address] Signed subcutaneous tissue with blunt and electrocautery dissection. A pocket was created inferiorly over the pectoralis fascia. The skin was incised at the exit site from the wire with an #11 blade and subsequently dilator and peel-away introducer passed over the wire. The wire and the dilator were removed showing vigorous retrograde dark nonpulsatile bleeding. Previously inspected Groshong-type catheter was passed down the peel-away sheath introducer, stabilized gently and peel-away sheath introducer removed. The patient was then placed in the neutral position. A tunneling device was used to direct the catheter to the pocket. Not mentioned previously was the placement of a port device, partially secured with Vicryl suture. The catheter was trimmed to the appropriate length and secured to the port device within close collar device per manufacture's instructions and secured more fully to the pectoralis fascia. Access of the port with an angled Russell needle showed easy withdrawal of blood and easy flushing with heparinized saline. Fluoroscopy was undertaken confirming that the catheter and all its area was without sign of kink or malposition. The tip of the catheter was a bit higher than it had been placed initially, but is still in an acceptable site in the superior vena cava. The port pocket was reapproximated with interrupted 2-0 Vicryl and skin closed with running subcuticular 3-0 Vicryl. The puncture side and left infraclavicular space were secured with interrupted 2-0 Vicryl. Steri-Strips were applied to each site. The angled Russell needle was passed percutaneously into the port showing easy withdrawal of blood and easy flushing with heparinized saline. An Acticoat dressing was applied. The patient was allowed to emerge from the anesthesia, extubated, and taken to recovery room in good condition having suffered no complications. Sponge, needle, and instrument counts reported as correct x3. Milan Polanco MD JM/MODL /[id number] cc: MD Rg Sun MD Electronically Signed By: MILAN POLANCO MD 11/16/20 1035 PATIENT NAME: RENA WALTER OPERATIVE REPORT DATE OF : 45 REPORT #: [id number] PHYSICIAN: MILAN POLANCO MD PCP: LG COSTELLO MD REPORT IS CONFIDENTIAL AND NOT TO BE RELEASED WITHOUT AUTHORIZATION [address] [address] Signed Anselmo Mcdowell MD, PH.D. Freda Cline MD Copies: LG COSTELLO MD,RG MCDOWELL,ANSELMO CLINE,FREDA Stacy MD ~ Electronically Signed By: MILAN POLANCO MD 11/16/20 1035 PATIENT NAME: JANNET WALTERN CHILANGO OPERATIVE REPORT DATE OF : 45 REPORT #: [id number] PHYSICIAN: MILAN POLANCO MD PCP: LG COSTELLO MD REPORT IS CONFIDENTIAL AND NOT TO BE RELEASED WITHOUT AUTHORIZATION
== END 2020-11-06 12:00 | disposition home or self-care (01) ==
LOC: DS 06:25
PROVIDERS: ATTEND Surgery
PROC: B517ZZA Fluoroscopy of Left Subclavian Vein, Guidance (ICD-10-PCS; 2020-11-06)
PROC: 05H633Z Insertion of Infusion Device into Left Subclavian Vein, Percutaneous Approach (ICD-10-PCS; principal; 2020-11-06 06:45)
DX: C50.411 Malignant neoplasm of upper-outer quadrant of right female breast (principal); M79.89 Other specified soft tissue disorders; E11.9 Type 2 diabetes mellitus without complications; I10 Essential (primary) hypertension; E66.01 Morbid (severe) obesity due to excess calories; Z17.0 Estrogen receptor positive status [ER+]; Z79.84 Long term (current) use of oral hypoglycemic drugs; Z90.11 Acquired absence of right breast and nipple; Z20.822 Contact with and (suspected) exposure to COVID-19; Z68.32 Body mass index [BMI] 32.0-32.9, adult
CPT/HCPCS: 00532; 71045; C1788; J0690; J1644; J3010; J7121; U0003

== ENCOUNTER 2020-11-07 06:00 | Day surgery (SDC) | payer MEDICARE ==
[~2020-11-07] VITALS: Ht 165.1 cm; Wt 90.5 kg
[~2020-11-07 06:00] MED LIST changes: +DIFLUCAN150 MG PO
--- NOTE | 2020-11-22 17:44 | OR ---
[facility] [address] [place], [place] [address] Signed DATE OF OPERATION: 11/07/2020 SURGEON: Cori Dempsey MD PREOPERATIVE DIAGNOSIS: Postmenopausal bleeding, probable uterine cancer. POSTOPERATIVE DIAGNOSIS: Postmenopausal bleeding, probable uterine cancer pending pathology. PROCEDURE: D and C. ANESTHESIA: MAC. ESTIMATED BLOOD LOSS: 25 mL. DRAINS: None. INDICATIONS AND FINDINGS: The patient is a 75-year-old female, 0, who was recently diagnosed with stage IV breast cancer and is status post mastectomy. She does have mets to the sternum. During the course of evaluation, she underwent a PET scan, which also showed a suspicious focus inside the uterus. The patient has had abnormal vaginal bleeding for at least 6 months. Endometrial biopsy in the office was unsuccessful. Her Pap smear did show atypical glandular cells. At the time of surgery, exam under anesthesia revealed a top-normal sized uterus. At the time of D and C, there was tissue presenting at the cervix, which was removed and sent for pathology. The cervix itself was extremely difficult to dilate. The uterus eventually sounded to 12 cm. There was a large amount of tissue within the uterus. DESCRIPTION OF PROCEDURE: The patient was prepped and draped in the dorsal lithotomy position. A weighted speculum was placed and the anterior lip of the cervix was visualized with some difficulty and grasped with a single-tooth tenaculum. The tissue presenting at the os was removed. The cervix was dilated with some difficulty using very small dilators. At that point, the sound could be placed and she sounded to 12 cm. Following this, the Electronically Signed By: CORI DEMPSEY MD 11/22/20 1744 PATIENT NAME: RENA WALTER OPERATIVE REPORT DATE OF : 45 REPORT #: [id number] PHYSICIAN: CORI DEMPSEY MD PCP: LG COSTELLO MD REPORT IS CONFIDENTIAL AND NOT TO BE RELEASED WITHOUT AUTHORIZATION [facility] [address] [place] [id number] Signed cervix was steadily and slowly dilated to an #8 dilator. At that point, a small curette could be introduced and large amount of tissue was removed from the cavity. No hysteroscopy was done because of the difficulty with dilation. When it was felt that majority of the tissue from the uterus was removed, the D and C was discontinued. The tenaculum was removed and there was no evidence of bleeding from the tenaculum site. There was no evidence of tearing of the vagina with the weighted speculum either. The procedure was then terminated and the patient taken to the recovery room in good condition. All sponge and needle counts were correct. Cori Dempsey MD PJW/MODL /[id number] cc: Anselmo Pearson MD, PH.D. MD Freda Sun MD John McBee, MD Copies: JULY,ANSELMO COSTELLO,FREDA KING MD, MD, JOHN MD ~ Electronically Signed By: CORI DEMPSEY MD 11/22/20 1744 PATIENT NAME: RENA WALTER OPERATIVE REPORT DATE OF : 45 REPORT #: [id number] PHYSICIAN: CORI DEMPSEY MD PCP: LG COSTELLO MD REPORT IS CONFIDENTIAL AND NOT TO BE RELEASED WITHOUT AUTHORIZATION
--- NOTE | 2020-12-14 18:06 | PATH ---
[facility] [address] [place], [place] [address] Signed THIS IS AN ADDENDUM REPORT SPECIMEN(S): A UTERINE CONTENTS SPECIMEN SOURCE: A. UTERINE CONTENTS CLINICAL HISTORY: Hysteroscopy DC. Postmenopausal bleeding; metastatic breast CA. FINAL PATHOLOGIC DIAGNOSIS: Uterine contents, dilation and curettage: - Carcinosarcoma. 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 As part of [facility]' Quality Improvement Program, this case was reviewed by another member of our pathology staff (KARLA). The results were called to Dr. Dempsey on 11/08/2020. NAL: :cml:C1NR MICROSCOPIC EXAMINATION: Histologic sections of all submitted blocks are examined by light microscopy. These findings, together with the gross examination, support the pathologic diagnosis. Immunohistochemical stains (with appropriately staining controls) were performed to evaluate the sarcomatous components. S100 highlights malignant cells in the chondrosarcomatous areas and desmin and myogenin highlight foci of malignant cells, supporting rhabdomyosarcomatous differentiation. GROSS DESCRIPTION: The specimen, labeled "MJ, uterine contents," is received in formalin and consists of irregular shaped, membranous and hemorrhagic tissue fragments that aggregate measure 5.0 x 4.0 x 1.3 cm. Specimen is entirely submitted in cassettes (A1-A5). JS (under the direct supervision of a pathologist) The Gross Description was prepared using a voice recognition system. The report was reviewed for accuracy; however, sound-alike word errors, addition and/or PATIENT NAME: RENA WALTER PATHOLOGY DATE OF : 45 REPORT #: [id number] PHYSICIAN: WILLIAM PATHOLOGY PCP: LG COSTELLO MD REPORT IS CONFIDENTIAL AND NOT TO BE RELEASED WITHOUT AUTHORIZATION [facility] [address] [id number] Signed deletions may occur. If there is any question about this report, please contact Client Services. PERFORMING LABORATORY: The technical component was performed by [facility], [address] [place] [id number] (Admin Assistant: Silvia Jeff MD; CLIA# [id number]). [facility], [address] [address] (CLIA# [id number]). COMMENT: Tumor cells show no loss of nuclear expression of MMR proteins. This correlates with a low probability of microsatellite instability. However, if there is a high clinical suspicion for Hedrick syndrome (hereditary non-polyposis colorectal carcinoma syndrome) in this patient, additional testing should be considered. Please contact [facility] if such testing is indicated. ADDITIONAL NOTES: Immunohistochemical and/or in situ hybridization studies were performed on this case with the appropriate positive controls that react as expected. This test was developed and its performance characteristics determined by [facility]. It has not been cleared or approved by the U.S. Food and Drug Administration. The FDA has determined that such clearance or approval is not necessary. This test is used for clinical purposes. It should not be regarded as investigational or for research. [facility] is certified under the Clinical Laboratory Improvement Amendments of 1988 (CLIA) as qualified to perform high complexity clinical laboratory testing. REASON FOR ADDENDUM: To add results of additional testing. ADDENDUM PATHOLOGIC DIAGNOSIS: Uterine contents, Carcinosarcoma, microsatellite instability testing by IHC: - MLH1: Intact nuclear expression - MSH2: Intact nuclear expression. - MSH6: Intact nuclear expression. - PMS2: Intact nuclear expression. INTERPRETATION: Normal pattern. ADDENDUM MICROSCOPIC EXAMINATION: PATIENT NAME: RENA WALTER PATHOLOGY DATE OF : 45 REPORT #: [id number] PHYSICIAN: WILLIAM ELLIOTT PCP: LG COSTELLO MD REPORT IS CONFIDENTIAL AND NOT TO BE RELEASED WITHOUT AUTHORIZATION [address] [address] Signed A panel of four antibodies is selected which will detect 95% of microsatellite unstable carcinomas. Testing is performed at the request of Dr. Cevallos. Block: A4 Recut HE slide is prepared from the block. The presence of neoplastic glands and non-neoplastic internal control glands or stroma is confirmed. Internal control cells for MLH1, MSH2, PMS2 and MSH6 are positive. Neoplastic gland cells show the following: - MLH1: Positive. - MSH2: Positive. - MSH6: Positive. - PMS2: Positive. Technical testing is performed at [facility], [place], [place]; professional interpretation performed at [place], [place]. NAL:kaur ADDITIONAL NOTES: Immunohistochemical and/or in situ hybridization studies were performed on this case with the appropriate positive controls that react as expected. This test was developed and its performance characteristics determined by [facility]. It has not been cleared or approved by the U.S. Food and Drug Administration. The FDA has determined that such clearance or approval is not necessary. This test is used for clinical purposes. It should not be regarded as investigational or for research. [facility] is certified under the Clinical Laboratory Improvement Amendments of 1988 (CLIA) as qualified to perform high complexity clinical laboratory testing. This assay has not been validated for specimens that have been decalcified. REASON FOR ADDENDUM: To add results of additional testing. ADDENDUM PATHOLOGIC DIAGNOSIS: Estrogen receptor: Negative. - 0% of definitive tumor cells with any staining. Progesterone receptor: Negative. - 0% of definitive tumor cells with any staining. NAL:cml ADDENDUM MICROSCOPIC EXAMINATION: Block: A4. The fixative is 10% NBF. The length of fixation is unknown. PATIENT NAME: RENA WALTER PATHOLOGY DATE OF : 45 REPORT #: [id number] PHYSICIAN: WILLIAM PATHOLOGY PCP: LG COSTELLO MD REPORT IS CONFIDENTIAL AND NOT TO BE RELEASED WITHOUT AUTHORIZATION [address] [address] Signed Estrogen receptor clone SP1 and progesterone receptor clone [id number] by [employer] [place], [place]. Detection: HRP Polymer Detection on the [place] Immunostainer with appropriate controls. External and Internal control cells for ER and MD are positive. NAL:cml The technical component was performed by [facility], [address] [place] [id number] (Admin Assistant: Silvia Jeff MD; CLIA# [id number]). Professional interpretation was performed by [facility], [facility], [address] [address] (CLIA# [id number]). PERFORMING LABORATORY: The technical and professional components were performed by [facility], [address] [place] [id number] (Admin Assistant: Marcellus Ramirez D.O.; CLIA#: [id number]). REASON FOR ADDENDUM: To add results of additional testing. ADDENDUM PATHOLOGIC DIAGNOSIS: HER-2 protein by IHC, uterine contents, carcinosarcoma: - Negative; IHC score 1+. MZ:[facility] ADDENDUM MICROSCOPIC EXAMINATION: Block: A4. The fixation is 10% buffered formalin. The length of fixation is unknown. HER-2 protein expression by immunohistochemistry using the FDA-approved HER-2 Pathway is performed [place], at the request of Dr. Shaneka Cevallos. Standardized batch control materials react appropriately. The presence of tumor is confirmed. Scoring is according to ASCO/CAP 2018 guidelines. Incomplete membrane staining that is faint/barely perceptible and within more than 10% of invasive tumor cells, score 1+. Diagnostician: Shaneka Cevallos MD Pathologist Diagnostician: Lisa Palmer MD, PhD Pathologist Electronically Signed 12/14/2020 Copies: PATIENT NAME: RENA WALTER PATHOLOGY DATE OF : 45 REPORT #: [id number] PHYSICIAN: WILLIAM PATHOLOGY PCP: LG COSTELLO MD REPORT IS CONFIDENTIAL AND NOT TO BE RELEASED WITHOUT AUTHORIZATION [address] [place], [place] [address] Signed ~ PATIENT NAME: RENA WALTER PATHOLOGY DATE OF : 45 REPORT #: [id number] PHYSICIAN: WILLIAM PATHOLOGY PCP: LG COSTELLO MD REPORT IS CONFIDENTIAL AND NOT TO BE RELEASED WITHOUT AUTHORIZATION
== END 2020-11-07 11:25 | disposition home or self-care (01) ==
LOC: DS 06:00
PROVIDERS: ATTEND Obstetrics & Gynecology
PROC: 0UDB7ZX Extraction of Endometrium, Via Natural or Artificial Opening, Diagnostic (ICD-10-PCS; principal; 2020-11-07 06:45)
DX: C55 Malignant neoplasm of uterus, part unspecified (principal); C50.811 Malignant neoplasm of overlapping sites of right female breast; C79.51 Secondary malignant neoplasm of bone; C77.3 Secondary and unspecified malignant neoplasm of axilla and upper limb lymph nodes; C77.1 Secondary and unspecified malignant neoplasm of intrathoracic lymph nodes; Z17.0 Estrogen receptor positive status [ER+]; E11.9 Type 2 diabetes mellitus without complications; E66.9 Obesity, unspecified; Z68.33 Body mass index [BMI] 33.0-33.9, adult; E78.2 Mixed hyperlipidemia; I10 Essential (primary) hypertension; I47.9 Paroxysmal tachycardia, unspecified; Z80.3 Family history of malignant neoplasm of breast; Z80.0 Family history of malignant neoplasm of digestive organs; Z79.82 Long term (current) use of aspirin; Z79.84 Long term (current) use of oral hypoglycemic drugs; Z90.11 Acquired absence of right breast and nipple
CPT/HCPCS: 00952; 77001; 88305; 88341; 88342; J1644; J2250; J2405; J2704; J7121